=== PATIENT | female | born 1945 | race Caucasian/White ===

== ENCOUNTER 2017-08-06 10:58 | Outpatient (CLI) | payer MEDICARE, BC | END 2017-08-06 23:59 | disposition home or self-care (01) | LOC: MRI 10:58 | DX: M17.11 Unilateral primary osteoarthritis, right knee (principal); M23.221 Derangement of posterior horn of medial meniscus due to old tear or injury, right knee | CPT/HCPCS: 73721-TC ==

== ENCOUNTER 2018-03-29 14:09 | Emergency (ER) | payer MEDICARE, BC ==
[~2018-03-29] VITALS: Ht 162.6 cm; Wt 53.5 kg
[2018-03-29] MEDS ORDERED: LORAZEPAM INJ 2 MG/ML VIAL ONE (14:48)
[2018-03-29 14:52] LABS: BASOPHILS # (AUTO) 0.1 /CMM (0.0-0.2); BASOPHILS % (AUTO) 0.9 % (0.0-2.0); EOSINOPHILS % (AUTO) 1.1 % (0.0-6.0); HEMATOCRIT 39 % (33-45); LYMPHOCYTES # (AUTO) 1.3 /CMM (0.8-4.8); LYMPHOCYTES % (AUTO) 22.4 % (20.0-44.0); MEAN CORPUSCULAR HGB CONC 33 g/dl (31.0-36.0); MEAN CORPUSCULAR VOLUME 92 fL (82-100); MONOCYTES # (AUTO) 0.4 /CMM (0.1-1.30); MONOCYTES % (AUTO) 6.6 % (2.0-12.0); NEUTROPHILS # (AUTO) 3.9 /CMM (1.8-8.9); PLATELET COUNT (AUTO) 250 /CMM (150-450); RED BLOOD CELL COUNT(AUTO) 4.28 MIL/uL (4.0-5.2); WHITE BLOOD COUNT (AUTO) 5.7 K/uL (4.3-11.0)
[2018-03-29] MEDS ORDERED: IV NS 0.9% 500 ML BAG IV ONE (15:00)
[2018-03-29] MEDS ORDERED: LORAZEPAM INJ 2 MG/ML VIAL IVP ONE (15:00)
[2018-03-29 15:07] LABS: CALCIUM, SERUM 9.6 mg/dL (8.5-10.1); CARBON DIOXIDE 24 mmol/L (21-32); CHLORIDE 102 mmol/L (98-107); CREATININE 0.8 mg/dL (0.6-1.3); GLUCOSE 91 mg/dL (74-106); POTASSIUM 3.2 mmol/L (3.5-5.1); SODIUM SERUM 140 mmol/L (136-145); UREA NITROGEN, BLOOD 19 mg/dL (7-18)
[2018-03-29 15:12] LABS: ALANINE AMINOTRANSFERASE 26 U/L (12-78); ALBUMIN 3.9 g/dL (3.4-5.0); ALCOHOL, BLOOD < 3 mg/dL (0-0); ALKALINE PHOSPHATASE 79 U/L (46-116); ASPARTATE AMINOTRANSFERASE 20 U/L (15-37); BILIRUBIN,DIRECT 0.1 mg/dL (0.0-0.2); BILIRUBIN,TOTAL 0.4 mg/dL (0.2-1.0); TOTAL PROTEIN, SERUM 7.2 g/dL (6.4-8.2)
[2018-03-29 15:15] LABS: SALICYLATE 1.7 mg/dL (2.8-20.0)
[2018-03-29 15:16] LABS: ACETAMINOPHEN < 10 ug/ml (10-30)
[2018-03-29 15:25] VITALS: BP 150/92
--- NOTE | 2018-03-29 15:26 | NUR ---
pt appear to be calm at present
--- NOTE | 2018-03-29 15:46 | NUR ---
pt pulled IV out - dressing applied NS bolus completed.
--- NOTE | 2018-03-29 16:22 | NUR ---
Felicia - Psych scout sniper seeing pt at present
--- NOTE | 2018-03-29 16:55 | NUR ---
pt cleared by Psych leg assembler - per Felicia pt denies being suicidal , pt left without instruction after evaluated by Felicia , withnessed by other JOEY Smith
--- NOTE | 2018-03-29 16:57 | NUR ---
Dr Watkins made aware that pt left prior to discharged
[2018-03-29] MEDS ORDERED: POTASSIUM CHLORIDE 20 MEQ TAB.PRT.SR PO ONE (17:00)
[2018-03-30] MEDS ORDERED: IOHEXOL-300 100 ML VIAL IV ONE (17:16)
[2018-03-30] MEDS ORDERED: CT SWABBABLE VALVE TRANS SET 1 EA INFUS.SET MC ONE (17:17)
== END 2018-03-29 17:00 | disposition home or self-care (01) ==
LOC: ER 14:10
DX: F41.1 Generalized anxiety disorder (principal)
CPT/HCPCS: 36415; 80048-TC; 80076-TC; 85025-TC; A4606; G0480; J2060; J7040; Q9967

== ENCOUNTER 2018-03-30 15:29 | Emergency (ER) | payer MEDICARE, BC ==
[~2018-03-30] VITALS: Ht 162.6 cm; Wt 53.5 kg
--- NOTE | 2018-03-30 15:30 | NUR ---
BIB SELF W C/O GENERALIZED PAIN, "PAIN ALL OVER' X 1 MONTH, SEEN HERE YESTERDAY FOR THE SAME REASON. TO ER BED 10, HOOKED TO MONITOR, AWAITING MD CASON.
[2018-03-30] MEDS ORDERED: ONDANSETRON HCL/PF 4 MG/2 ML VIAL ONE (16:23)
[2018-03-30] MEDS ORDERED: MORPHINE SULFATE INJ 4 MG/ML DISP.SYRIN ONE (16:23)
[2018-03-30] MEDS ORDERED: MORPHINE SULFATE INJ 2 MG/ML DISP.SYRIN IV ONE (16:30)
[2018-03-30] MEDS ORDERED: ONDANSETRON HCL/PF 4 MG/2 ML VIAL IV ONE (16:30)
[2018-03-30] MEDS ORDERED: IV NS 0.9% 1,000 ML BAG IV ONE (16:30)
--- NOTE | 2018-03-30 17:15 | NUR ---
OUT FOR CT OF ABDOMEN AND PELVIS
[2018-03-30 17:33] LABS: C-REACTIVE PROTEIN 0.5 mg/dL (0.0-0.9); THYROID STIMULATING HORMONE 0.764 uIU/mL (0.358-3.74)
--- NOTE | 2018-03-30 18:49 | NUR ---
IV removed. Catheter intact and site benign. Pressure and 4x4 applied to site. No bleeding noted.Patient discharged to home in stable condition. Written and verbal after care instructions given. Patient verbalizes understanding of instruction.
[2018-03-30 18:57] VITALS: BP 137/83
== END 2018-03-30 19:02 | disposition home or self-care (01) ==
LOC: ER 15:33
DX: F41.1 Generalized anxiety disorder (principal); M79.10 Myalgia, unspecified site; M54.9 Dorsalgia, unspecified; Z60.2 Problems related to living alone
CPT/HCPCS: 36415; 82550-TC; 83615-TC; 84443-TC; 85652-TC; 86140-TC; A4606; J2270; J2405; J7030; Z7610

== ENCOUNTER 2018-11-07 19:17 | Emergency (ER) | payer BC, MEDICARE ==
[~2018-11-07] VITALS: Ht 162.6 cm; Wt 52.2 kg
[2018-11-07 19:29] VITALS: BP 168/89
[2018-11-07] MEDS ORDERED: MORPHINE SULFATE INJ 4 MG/ML DISP.SYRIN ONE (19:58)
[2018-11-07] MEDS ORDERED: MORPHINE SULFATE INJ 2 MG/ML DISP.SYRIN IM ONE (20:00)
[2018-11-07 20:31] LABS: BASOPHILS # (AUTO) 0.1 /CMM (0.0-0.2); EOSINOPHILS % (AUTO) 2.3 % (0.0-6.0); HEMATOCRIT 36 % (33-45); HEMOGLOBIN 11.9 g/dL (11.5-14.8); LYMPHOCYTES # (AUTO) 1.5 /CMM (0.8-4.8); LYMPHOCYTES % (AUTO) 25.9 % (20.0-44.0); MEAN CORPUSCULAR HGB CONC 33 g/dl (31.0-36.0); MEAN CORPUSCULAR VOLUME 94 fL (82-100); MONOCYTES # (AUTO) 0.4 /CMM (0.1-1.30); MONOCYTES % (AUTO) 7.2 % (2.0-12.0); NEUTROPHILS # (AUTO) 3.8 /CMM (1.8-8.9); NEUTROPHILS % (AUTO) 63.6 % (43.0-81.0); PLATELET COUNT (AUTO) 198 /CMM (150-450); WHITE BLOOD COUNT (AUTO) 5.9 K/uL (4.3-11.0)
--- NOTE | 2018-11-07 20:36 | NUR ---
PT AMBULATORY WITH STEADY GAIT
[2018-11-07 20:48] LABS: CALCIUM, SERUM 8.5 mg/dL (8.5-10.1); CARBON DIOXIDE 26 mmol/L (21-32); CHLORIDE 106 mmol/L (98-107); CREATININE 0.8 mg/dL (0.6-1.3); GLUCOSE 86 mg/dL (74-106); POTASSIUM 3.4 mmol/L (3.5-5.1); SODIUM SERUM 142 mmol/L (136-145); UREA NITROGEN, BLOOD 27 mg/dL (7-18)
[2018-11-07] MEDS ORDERED: VALACYCLOVIR HCL 500 MG TABLET ONE (20:57)
[2018-11-07] MEDS ORDERED: HYDROCODONE/APAP 5/325MG 1 EACH TABLET ONE (20:57)
[2018-11-07] MEDS ORDERED: VALACYCLOVIR HCL 500 MG TABLET PO ONE (21:00)
[2018-11-07] MEDS ORDERED: HYDROCODONE/APAP 5/325MG 1 EACH TABLET PO ONE (21:00)
== END 2018-11-07 21:23 | disposition home or self-care (01) ==
LOC: ER 20:20
DX: M79.661 Pain in right lower leg (principal); F41.9 Anxiety disorder, unspecified; F32.9 Major depressive disorder, single episode, unspecified; Z98.890 Other specified postprocedural states; Z60.2 Problems related to living alone
CPT/HCPCS: 36415; 80048; 85025; 96372; 99283; J2270

== ENCOUNTER 2018-11-08 18:34 | Emergency (ER) | payer MEDICARE ==
[~2018-11-08] VITALS: Ht 162.6 cm; Wt 52.2 kg
[2018-11-08 18:56] VITALS: BP 143/74
[2018-11-08] MEDS ORDERED: TRAMADOL HCL 50 MG TABLET PO ONE (19:30)
[2018-11-08] MEDS ORDERED: TRAMADOL HCL 50 MG TABLET ONE (19:39)
== END 2018-11-08 19:57 | disposition home or self-care (01) ==
LOC: ER 18:34
DX: G62.9 Polyneuropathy, unspecified (principal); M79.604 Pain in right leg; G89.29 Other chronic pain; M54.9 Dorsalgia, unspecified; F32.9 Major depressive disorder, single episode, unspecified; Z98.890 Other specified postprocedural states; Z60.2 Problems related to living alone

== ENCOUNTER 2018-11-09 10:47 | Emergency (ER) | payer MEDICARE ==
[~2018-11-09] VITALS: Ht 165.1 cm; Wt 52.2 kg
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
--- NOTE | 2018-11-09 11:35 | NUR ---
DR ORELLANA AT BEDSIDE FOR EVAL.
[2018-11-09] MEDS ORDERED: KETOROLAC TROMETHAMINE INJ 30 MG/ML VIAL ONE (11:54)
[2018-11-09] MEDS ORDERED: LORAZEPAM INJ 2 MG/ML VIAL ONE (11:54)
[2018-11-09] MEDS ORDERED: KETOROLAC TROMETHAMINE INJ 60 MG/2 ML VIAL IM ONE (12:00)
[2018-11-09] MEDS ORDERED: LORAZEPAM INJ 2 MG/ML VIAL IM ONE (12:00)
--- NOTE | 2018-11-09 12:04 | NUR ---
ENTERED ROOM TO GIVE MEDS. PT ASLEEP. UPON AWAKENING, PT BECAME ANXIOUS AND HYPERVENTILATING. REASSURED PT AND PRACTICED BREATHING TECHNIQUES. MEDS GIVE PER MD ORDER. WILL CONT TO OBSERVE
[2018-11-09] MEDS ORDERED: MORPHINE SULFATE INJ 4 MG/ML DISP.SYRIN IM ONE (12:30)
[2018-11-09] MEDS ORDERED: MORPHINE SULFATE INJ 4 MG/ML DISP.SYRIN ONE (12:32)
--- NOTE | 2018-11-09 12:48 | NUR ---
PT GIVEN FOOD TRAY
--- NOTE | 2018-11-09 13:00 | NUR ---
Patient discharged to home in stable condition. Written and verbal after care instructions given. Patient verbalizes understanding of instruction.
[2018-11-09 13:03] VITALS: BP 139/60
== END 2018-11-09 13:17 | disposition home or self-care (01) ==
LOC: ER 10:49
DX: G62.9 Polyneuropathy, unspecified (principal); M79.10 Myalgia, unspecified site; F32.9 Major depressive disorder, single episode, unspecified; Z98.890 Other specified postprocedural states; Z60.2 Problems related to living alone
CPT/HCPCS: 96372 ×2; 99283; J1885; J2060; J2270

== ENCOUNTER 2018-11-12 16:36 | Emergency (ER) | payer MEDICARE ==
[~2018-11-12] VITALS: Ht 162.6 cm; Wt 59.0 kg
[2018-11-12 16:52] VITALS: BP 154/90
--- NOTE | 2018-11-12 17:16 | NUR ---
BIBRA FROM HOME C/O ANXIETY/PANIC ATTACK, TACHYPNEIC, CRYING. DENIES SI/HI. PT AAOX4, VSS. CALM & COOPERATIVE. DENIES CP, SOB, DIZZINESS, N/V AT THIS TIME. PT ALSO C/O LT LOWER LEG PAIN. SEEN & EVAL'D BY DR. GAMEZ & WILL CONT TO MONITOR.
[2018-11-12] MEDS ORDERED: LORAZEPAM 1 MG TABLET ONE (17:29)
[2018-11-12] MEDS ORDERED: KETOROLAC TROMETHAMINE INJ 30 MG/ML VIAL ONE (17:29)
[2018-11-12] MEDS ORDERED: KETOROLAC TROMETHAMINE INJ 60 MG/2 ML VIAL IM ONE (17:30)
[2018-11-12] MEDS ORDERED: LORAZEPAM 1 MG TABLET PO ONE (17:30)
--- NOTE | 2018-11-12 17:50 | NUR ---
MEDICATED FOR PAIN & ANXIETY PER ERMD ORDER, PT JENNIFFER WELL.
[2018-11-12 17:53] LABS: CALCIUM, SERUM 8.8 mg/dL (8.5-10.1); CARBON DIOXIDE 24 mmol/L (21-32); CHLORIDE 102 mmol/L (98-107); CREATININE 1.1 mg/dL (0.6-1.3); GLUCOSE 89 mg/dL (74-106); POTASSIUM 3.4 mmol/L (3.5-5.1); SODIUM SERUM 139 mmol/L (136-145); UREA NITROGEN, BLOOD 24 mg/dL (7-18)
[2018-11-12 18:00] LABS: ALANINE AMINOTRANSFERASE 25 U/L (12-78); ALBUMIN 3.9 g/dL (3.4-5.0); ALKALINE PHOSPHATASE 94 U/L (46-116); ASPARTATE AMINOTRANSFERASE 14 U/L (15-37); BILIRUBIN,DIRECT 0.1 mg/dL (0.0-0.2); BILIRUBIN,TOTAL 0.2 mg/dL (0.2-1.0); SALICYLATE 1.6 mg/dL (2.8-20.0); TOTAL PROTEIN, SERUM 7.4 g/dL (6.4-8.2)
[2018-11-12 18:01] LABS: ACETAMINOPHEN < 5 ug/ml (10-30); ALCOHOL, BLOOD < 5 mg/dL (0-0)
--- NOTE | 2018-11-12 18:15 | NUR ---
PT WANTED TO GO HOME SNEHAL. EXPLAINED TO PT THAT SHE NEEDED TO STAY FOR LAB RESULTS. MD AWARE ABOUT THE SITUATION.
--- NOTE | 2018-11-12 18:30 | NUR ---
DR. FRANCO LAUREN AWARE.
[2018-11-12 20:39] LABS: BASOPHILS # (AUTO) 0.1 /CMM (0.0-0.2); BASOPHILS % (AUTO) 0.9 % (0.0-2.0); EOSINOPHILS % (AUTO) 1.8 % (0.0-6.0); HEMATOCRIT 39 % (33-45); HEMOGLOBIN 13.4 g/dL (11.5-14.8); LYMPHOCYTES # (AUTO) 1.4 /CMM (0.8-4.8); LYMPHOCYTES % (AUTO) 23.6 % (20.0-44.0); MEAN CORPUSCULAR HGB CONC 34 g/dl (31.0-36.0); MEAN CORPUSCULAR VOLUME 93 fL (82-100); MONOCYTES # (AUTO) 0.5 /CMM (0.1-1.30); MONOCYTES % (AUTO) 7.5 % (2.0-12.0); NEUTROPHILS % (AUTO) 66.2 % (43.0-81.0); PLATELET COUNT (AUTO) 306 /CMM (150-450); RED BLOOD CELL COUNT(AUTO) 4.22 MIL/uL (4.0-5.2); WHITE BLOOD COUNT (AUTO) 6.1 K/uL (4.3-11.0)
== END 2018-11-12 18:30 | disposition left against medical advice (07) ==
LOC: ER 16:36
DX: F41.9 Anxiety disorder, unspecified (principal); G62.9 Polyneuropathy, unspecified; G89.29 Other chronic pain; Z98.890 Other specified postprocedural states; Z60.2 Problems related to living alone
CPT/HCPCS: 36415; 80048; 80076; 80307; 80329; 85025; 96372; 99284; G0480; J1885